=== PATIENT | female | born 2000 | race American Indian/Alaskan Native ===

== ENCOUNTER 2020-03-03 05:14 | Observation (INO) | payer MEDICAID, OTHER ==
[2020-03-03] MEDS ORDERED: ALBUTEROL 2.5 MG/3 ML NEBU IH ONE ×4 (05:30→09:29)
[2020-03-03] MEDS ORDERED: IPRATROPIUM 0.02% NEBU 2.5 ML IH ONE ×3 (05:30→05:32)
[2020-03-03] MEDS ORDERED: SODIUM CHLORIDE 0.9% 1000 ML 1,000 ML IV ONE (06:41)
[2020-03-03] MEDS ORDERED: MAGNESIUM SULFATE 2 GM/50 ML BAG IV ONE (06:42)
[2020-03-03] MEDS ORDERED: EPINEPHrine/PF 1 MG/1 ML INJ SUB-Q ONE ×3 (06:42→09:26)
--- NOTE | 2020-03-03 06:42 | Emergency Department Report ---
ED Asthma HPI - General Chief Complaint: Adult Asthma Stated Complaint: ASTHMA FLARE PUI?: No Time Seen by Provider: 03/03/20 06:34 Source: patient, RN notes reviewed Mode of arrival: Ambulatory Limitations: No Limitations - History of Present Illness Initial Comments: The patient was evaluated in the emergency department for symptoms described in the history of present illness. He/she was evaluated in the context of the [facility] COVID-19 pandemic, which necessitated consideration that the patient might be at risk for infection with the virus that causes COVID-19. Institutional protocols and algorithms that pertain to the evaluation of patients at risk for COVID-19 are in a state of rapid change based on information released by regulatory bodies including the CDC and federal and state organizations. These policies and algorithms were followed during the patient's care in the emergency department. Please note that these policies, procedures and recommendations changed on a rapid basis. During the entire history and physical examination, I am chaperoned/escorted by paramedics Agapiot Perry The patient is a 19-year-old female. She is not known to myself previously. She states that she is not . She has a history of asthma. She denies intubations. She believes that she has been admitted to the hospital at least once or twice in the past. She does not take maintenance medications. She states that she has not delivered or given within the past 6 weeks, she has not traveled, had surgery, she does not take oral contraceptives, and she denies DVT, pulmonary embolism risk factors. She presents to the ER with a complaint of chest tightness, cough, wheezing, shortness of breath, typical of prior asthma exacerbations. Denies headache, neck pain, abdominal pain, vomiting, diaphoresis, leg pain, leg swelling, and urinary symptoms. She states that she does not smoke anything. MD Complaint: "asthma attack", shortness of breath, wheezing -: Gradual, days(s) (1 to 2 days) Asthma History: childhood onset, history of frequent attac, history of prior ED visit Severity: moderate Context: other (Patient is not sure in what context her asthma has flared up) Associated Symptoms: dry cough, other (As per history of present illness) Treatments Prior to Arrival: inhaled bronchodilator (Patient using breathing treatments at home.) - Related Data Previous Rx's Medication Instructions Recorded Last Taken Type ALBUTEROL NEB's [Proventil 0.083% 2.5 mg IH TID PRN #25 neb 04/11/13 12/23/12 Rx NEBS] Albuterol Sulfate [Ventolin HFA] 2 puff IH Q4H PRN #1 hfa.aer.ad 04/11/13 12/23/12 Rx ALBUTEROL NEB's [Proventil 0.083% 2.5 mg IH Q4H PRN #25 neb 01/21/14 Unknown Rx NEBS] Azithromycin [Zithromax Z-NIKOS] 250 mg PO DAILY #6 tablet 01/21/14 Unknown Rx Promethazine /Codeine 5 ml PO Q6H PRN #100 ml 01/21/14 Unknown Rx [Phenergan/Codeine 6.25-10 mg/5 ml] predniSONE [Deltasone] 20 mg PO TID #15 tab 01/21/14 Unknown Rx Allergies Allergy/AdvReac Type Severity Reaction Status Date / Time No Known Allergies Allergy Verified 01/21/14 01:53 ED Review of Systems ROS: Stated complaint: ASTHMA FLARE Other details as noted in HPI Constitutional: denies: fever Eyes: denies: eye discharge ENT: congestion Respiratory: cough, shortness of breath, SOB with exertion, SOB at rest, wheezing Cardiovascular: denies: syncope Gastrointestinal: denies: abdominal pain Genitourinary: denies: dysuria Musculoskeletal: as per HPI Skin: as per HPI Neurological: as per HPI Psychiatric: as per HPI Hematological/Lymphatic: as per HPI ED Past Medical Hx - Past Medical History Previous Medical History?: Yes Hx Asthma: Yes - Surgical History Past Surgical History?: No - Social History Smoking Status: Never Smoker Substance Use Type: None - Medications Home Medications: Home Medications Medication Instructions Recorded Confirmed Last Taken Type ALBUTEROL NEB's [Proventil 0.083% 2.5 mg IH TID PRN #25 neb 04/11/13 01/21/14 12/23/12 Rx NEBS] Albuterol Sulfate [Ventolin HFA] 2 puff IH Q4H PRN #1 hfa.aer.ad 04/11/13 01/21/14 12/23/12 Rx ALBUTEROL NEB's [Proventil 0.083% 2.5 mg IH Q4H PRN #25 neb 01/21/14 Unknown Rx NEBS] Azithromycin [Zithromax Z-NIKOS] 250 mg PO DAILY #6 tablet 01/21/14 Unknown Rx Promethazine /Codeine 5 ml PO Q6H PRN #100 ml 01/21/14 Unknown Rx [Phenergan/Codeine 6.25-10 mg/5 ml] predniSONE [Deltasone] 20 mg PO TID #15 tab 01/21/14 Unknown Rx ED Physical Exam - General Limitations: No Limitations General appearance: alert, in no apparent distress - Head Head exam: Present: atraumatic, normocephalic - Eye Eye exam: Present: normal appearance, EOMI. Absent: nystagmus - ENT ENT exam: Present: normal exam, normal orophraynx, mucous membranes moist - Neck Neck exam: Present: normal inspection, full ROM. Absent: tenderness, meningi smus - Respiratory Respiratory exam: Present: respiratory distress, wheezes, rhonchi. Absent: rales, stridor - Cardiovascular Cardiovascular Exam: Present: normal rhythm, tachycardia, normal heart sounds. Absent: regular rate, bradycardia, irregular rhythm, systolic murmur, diastolic murmur, rubs, gallop - GI/Abdominal GI/Abdominal exam: Present: soft. Absent: distended, tenderness, guarding, rebound, rigid, hernia - Extremities Exam Extremities exam: Present: normal inspection, full ROM, other (2+ pulses noted in the bilateral upper and lower extremities. There is no palpable cord. negative Homans sign. Muscular compartments are soft. The pelvis is stable.). Absent: pedal edema, calf tenderness - Back Exam Back exam: Present: normal inspection, full ROM. Absent: tenderness, CVA tende rness (R), CVA tenderness (L), paraspinal tenderness, vertebral tenderness - Neurological Exam Neurological exam: Present: alert, other (No facial droop. Tongue midline. Extraocular movements intact bilaterally. Facial sensation intact to light touch in V1, V2, V3 distribution bilaterally. 5 and a 5 strength in 4 extremities. Sensation intact to light touch in 4 extremities.). Absent: motor sensory deficit - Psychiatric Psychiatric exam: Present: anxious - Skin Skin exam: Present: warm, dry, intact, normal color. Absent: rash ED Course Vital Signs 03/03/20 03/03/20 03/03/20 05:20 05:35 08:01 Temperature 98.8 F Pulse Rate 133 H 130 H Pulse Rate [ 99 H Bilateral] Respiratory 18 23 Rate Respiratory 24 Rate [Bilateral ] Blood Pressure 132/89 134/86 Blood Pressure [Left] O2 Sat by Pulse 99 100 Oximetry 03/03/20 03/03/20 03/03/20 08:06 08:08 08:11 Temperature Pulse Rate 130 H Pulse Rate [ 124 H Bilateral] Respiratory 30 H 30 H Rate Respiratory 28 H Rate [Bilateral ] Blood Pressure Blood Pressure 142/72 [Left] O2 Sat by Pulse 100 100 Oximetry 03/03/20 03/03/20 03/03/20 08:15 08:45 09:01 Temperature Pulse Rate 135 H 135 H 140 H Pulse Rate [ Bilateral] Respiratory 18 24 29 H Rate Respiratory Rate [Bilateral ] Blood Pressure 134/86 134/86 134/86 Blood Pressure [Left] O2 Sat by Pulse 100 100 100 Oximetry 03/03/20 03/03/20 03/03/20 09:15 09:30 09:31 Temperature Pulse Rate 127 H 129 H Pulse Rate [ 133 H Bilateral] Respiratory 25 H 22 Rate Respiratory 22 Rate [Bilateral ] Blood Pressure 134/86 134/86 Blood Pressure [Left] O2 Sat by Pulse 100 97 Oximetry 03/03/20 03/03/20 09:45 10:00 Temperature Pulse Rate 138 H 130 H Pulse Rate [ Bilateral] Respiratory 24 26 H Rate Respiratory Rate [Bilateral ] Blood Pressure 134/86 117/64 Blood Pressure [Left] O2 Sat by Pulse 95 99 Oximetry - Reevaluation(s) Reevaluation #1: 03/03/20 07:25 Differential diagnosis, including but not limited to: Asthma exacerbation, bronchitis, costochondritis Assessment and plan: 19-year-old female, who reports no pulmonary embolism or DVT risk factors, who is low risk by Wells criteria, with a known history of reactive airway disease, presenting with cough, wheezing, chest tightness, saturating at 94, 95% on room air, likely with asthma exacerbation/reactive airway disease exacerbation. X-ray of the chest was ordered prior to my personal evaluation, and shows no acute findings. Treat with albuterol, Atrovent, steroids, magnesium, subcutaneous epinephrine, obtain EKG, and reassess. Reevaluation #2: 03/03/20 07:42 Still wheezing. O2 sat 92%. May be secondary to VQ mismatch, secondary to nebulizer therapy. Tachycardia is likely secondary to epinephrine and albuterol administration. Additional therapy is ordered. EKG pending Reevaluation #3: 03/03/20 09:27 The patient is reevaluated multiple times. She was not able to fully p articipate in peak flow, reported peak flow was 140 cc. On multiple repeat evaluations, still wheezing, still tachypneic. She is not able to exert herself physically, not able to walk without "gasping for my life." In spite of aggressive medical treatment, patient still continues to remain symptomatic and wheeze. We will give additional albuterol, epinephrine, admit the patient to the medical service. I have discussed this plan of care with the patient, she is amenable to this plan of care. Hospital physician, Dr. Darrell Roger to admit Reevaluation #4: 03/03/20 10:24 Arterial blood gas consistent with uncompensated acute hypoxemic respiratory failure, likely secondary to acute asthma exacerbation Reevaluation #5: 03/03/20 10:35 Leukocytosis is likely a stress reaction/demargination. Do not suspect invasive bacterial illness at this time. Abnormal vital signs, well consistent with systemic inflammatory response syndrome, likely secondary to acute status asthmaticus/hypoxic respiratory failure Hypokalemia likely secondary to albuterol administration. ED Medical Decision Making - Lab Data Result diagrams: 03/03/20 09:38 03/03/20 09:38 Vital Signs 03/03/20 03/03/20 05:20 05:35 Temperature 98.8 F Pulse Rate 133 H Pulse Rate [ 99 H Bilateral] Respiratory 18 Rate Respiratory 24 Rate [Bilateral ] Blood Pressure 132/89 O2 Sat by Pulse 99 Oximetry Vital Signs 03/03/20 03/03/20 03/03/20 05:20 05:35 08:01 Temperature 98.8 F Pulse Rate 133 H 130 H Pulse Rate [ 99 H Bilateral] Respiratory 18 23 Rate Respiratory 24 Rate [Bilateral ] Blood Pressure 132/89 134/86 Blood Pressure [Left] O2 Sat by Pulse 99 100 Oximetry 03/03/20 03/03/20 03/03/20 08:06 08:08 08:11 Temperature Pulse Rate 130 H Pulse Rate [ 124 H Bilateral] Respiratory 30 H 30 H Rate Respiratory 28 H Rate [Bilateral ] Blood Pressure Blood Pressure 142/72 [Left] O2 Sat by Pulse 100 100 Oximetry 03/03/20 03/03/20 03/03/20 08:15 08:45 09:01 Temperature Pulse Rate 135 H 135 H 140 H Pulse Rate [ Bilateral] Respiratory 18 24 29 H Rate Respiratory Rate [Bilateral ] Blood Pressure 134/86 134/86 134/86 Blood Pressure [Left] O2 Sat by Pulse 100 100 100 Oximetry 03/03/20 03/03/20 03/03/20 09:15 09:30 09:31 Temperature Pulse Rate 127 H 129 H Pulse Rate [ 133 H Bilateral] Respiratory 25 H 22 Rate Respiratory 22 Rate [Bilateral ] Blood Pressure 134/86 134/86 Blood Pressure [Left] O2 Sat by Pulse 100 97 Oximetry 03/03/20 03/03/20 09:45 10:00 Temperature Pulse Rate 138 H 130 H Pulse Rate [ Bilateral] Respiratory 24 26 H Rate Respiratory Rate [Bilateral ] Blood Pressure 134/86 117/64 Blood Pressure [Left] O2 Sat by Pulse 95 99 Oximetry - EKG Data -: EKG Interpreted by Vt Rate: tachycardia - EKG Data 03/03/20 07:47 Sinus rhythm, tachycardia, 140 bpm, normal axis, QTC 532 ms, high left vent ricular voltage, minimal motion artifact, this EKG is not a STEMI. - Radiology Data Radiology results: report reviewed, image reviewed X-ray of the chest is negative for acute findings. Critical Care Time: Yes Critical care time in (mins) excluding proc time.: 35 Critical care attestation.: If time is entered above; I have spent that time in minutes in the direct care of this critically ill patient, excluding procedure time. ED Disposition Clinical Impression: Acute hypoxemic respiratory failure, Hypokalemia Status asthmaticus Qualifiers: Asthma severity: severe Asthma persistence: persistent Qualified Code(s): J45.52 - Severe persistent asthma with status asthmaticus Disposition: OP ADMIT IP TO THIS HOSP Is pt being admited?: Yes Does the pt Need Aspirin: No Condition: Serious
[2020-03-03] MEDS: methylPREDNISolone Sod Succinate 125 MG/2 ML INJ IV ONE ×2 (06:48→23:01)
--- NOTE | 2020-03-03 07:00 | XRay Report ---
CHEST 1 VIEW INDICATION: cough and wheezing. COMPARISON: None. FINDINGS: Support devices: None. Heart: Normal. Lungs/Pleura: No acute pulmonary or pleural findings. IMPRESSION: 1. No acute findings. Signer Name: Lei Corrales MD Signed: 03/03/2020 6:55 AM Workstation Name: [id number]
[2020-03-03 10:06] LABS: Hematocrit 40.1 % (30.3-42.9); Hemoglobin 13.1 gm/dl (10.1-14.3); Mean Corpuscular HGB Conc 33 % (30-34); Mean Corpuscular Volume 85 fl (79-97); Platelet Count 313 K/mm3 (140-440); Red Blood Count 4.73 M/mm3 (3.65-5.03)
[2020-03-03 10:17] LABS: INR 1.2 (0.87-1.13)
[2020-03-03 10:19] LABS: ABG Base Excess -3.4 mmol/L (-2.0-3.0); ABG HCO3 20.7 mmol/L (20.0-26.0); ABG Methemoglobin 0.5 % (0.0-1.5); ABG Oxygen Saturation 91.3 % (95.0-99.0); ABG PCO2 34.3 mm Hg; ABG PH 7.399 pH Units (7.350-7.450); ABG PO2 59.4 mm Hg (80.0-90.0)
[2020-03-03 10:23] LABS: Blood Urea Nitrogen 3 mg/dL (7-17); Calcium 8.6 mg/dL (8.4-10.2); Hemolysis Index 1
--- NOTE | 2020-03-03 10:24 | History and Physical Report ---
History of Present Illness Date of examination: 03/03/20 Date of admission: 03/03/20 09:29 Chief complaint: Worsening shortness of breath, worsening wheeze for the last 2 days History of present illness: 19-year-old female patient with significant past medical history of bronchial asthma asymptomatic for more than 1 to 2 years, uses albuterol nebulizers at home Presented to the emergency room with history of upper respiratory symptoms, worsening shortness of breath and worsening wheezing for the last 2 3 days. Patient has history of asthma since childhood, and was not admitted to the hospital for many years, not on home oxygen. On initial evaluation patient was noted to be in acute exacerbation of bronchial asthma, severe hypokalemia, leukocytosis and sinus tachycardia X-ray chest negative for acute abnormalities Patient denies nausea vomiting or abdominal pain Denies chest pain, no fever Past History Past Medical History: other (Bronchial asthma) Past Surgical History: denies: No surgical history Social history: denies: smoking, alcohol abuse, prescription drug abuse Family history: hypertension Medications and Allergies Allergies Allergy/AdvReac Type Severity Reaction Status Date / Time No Known Allergies Allergy Verified 01/21/14 01:53 Home Medications Medication Instructions Recorded Confirmed Last Taken Type ALBUTEROL NEB's [Proventil 0.083% 2.5 mg IH TID PRN #25 neb 04/11/13 01/21/14 12/23/12 Rx NEBS] Albuterol Sulfate [Ventolin HFA] 2 puff IH Q4H PRN #1 hfa.aer.ad 04/11/13 01/21/14 12/23/12 Rx ALBUTEROL NEB's [Proventil 0.083% 2.5 mg IH Q4H PRN #25 neb 01/21/14 Unknown Rx NEBS] Azithromycin [Zithromax Z-NIKOS] 250 mg PO DAILY #6 tablet 01/21/14 Unknown Rx Promethazine /Codeine 5 ml PO Q6H PRN #100 ml 01/21/14 Unknown Rx [Phenergan/Codeine 6.25-10 mg/5 ml] predniSONE [Deltasone] 20 mg PO TID #15 tab 01/21/14 Unknown Rx Review of Systems Constitutional: no weight loss, no weight gain, no fever, no chills Ears, nose, mouth and throat: no nasal congestion, no nasal discharge Cardiovascular: no chest pain, no orthopnea, no palpitations Respiratory: cough, shortness of breath, wheezing Gastrointestinal: no abdominal pain, no nausea, no vomiting Genitourinary Female: no pelvic pain, no flank pain Musculoskeletal: no myalgias, no arthritis Integumentary: no rash, no lesions Neurological: weakness, parathesias Psychiatric: anxiety, no depression Endocrine: no cold intolerance, no heat intolerance, no polydipsia, no polyuria Hematologic/Lymphatic: no easy bruising, no easy bleeding Allergic/Immunologic: no urticaria, no allergic rhinitis Exam - Constitutional Vitals: Temp Pulse Resp BP Pulse Ox 98.8 F 130 H 26 H 117/64 99 03/03/20 05:20 03/03/20 10:00 03/03/20 10:00 03/03/20 10:00 03/03/20 10:00 General appearance: Present: mild distress, well-nourished - EENT Eyes: Present: PERRL, EOM intact - Neck Neck: Present: supple, normal ROM - Respiratory Respiratory effort: normal Respiratory: bilateral: diminished, rhonchi, wheezing, negative: rales - Cardiovascular Rhythm: regular Heart Sounds: Present: S1 & S2 (Sinus tachycardia) - Extremities Extremities: no ischemia, No edema - Abdominal General gastrointestinal: Present: soft, non-tender, non-distended, normal bowel sounds - Integumentary Integumentary: Present: clear, warm - Musculoskeletal Musculoskeletal: strength equal bilaterally - Psychiatric Psychiatric: appropriate mood/affect, cooperative - Neurologic Neurologic: moves all extremities Results - Labs CBC & Chem 7: 03/03/20 09:38 03/03/20 14:09 Labs: Abnormal lab results 03/03/20 03/03/20 03/03/20 Range/Units 09:35 09:38 09:38 WBC 14.7 H (4.5-11.0) K/mm3 PT 15.4 H (12.2-14.9) Sec. INR 1.20 H (0.87-1.13) ABG pO2 59.4 L (80.0-90.0) mm Hg ABG O2 Saturation 91.3 L (95.0-99.0) % ABG Base Excess -3.4 L (-2.0-3.0) mmol/L Oxyhemoglobin 89.8 L (95.0-99.0) % Assessment and Plan --Severe hypokalemia; Replenish with IV and oral KCl Check magnesium levels Closely monitor electrolytes --Acute exacerbation of bronchial asthma; Oxygen titrate O2 sats more than 90% Duo nebs, albuterol as needed IV Levaquin, inhalation steroids Solu-Medrol IV tapering doses Pulmonary consult if needed Home oxygen evaluation at discharge --Sinus tachycardia; probably secondary to albuterol Closely monitor, low-dose Xanax Drug screen --Leukocytosis; Probably due to pneumonitis Partly due to steroids Closely monitor, on antibiotics --Hyperglycemia; probably due to steroid use Accu-Chek sliding scale coverage Check A1c --DVT prophylaxis; Lovenox Closely monitor the patient and adjust management as needed
[2020-03-03] MEDS ORDERED: ALBUTEROL 2.5 MG/3 ML NEBU IH PRN (10:25)
[2020-03-03 10:26] LABS: BUN/Creatinine Ratio 6
[2020-03-03] MEDS ORDERED: POTASSIUM CHLORIDE ER 20 MEQ TAB PO STA (10:34)
[2020-03-03] MEDS: POTASSIUM CHLORIDE 10 MEQ 10 MEQ/100 ML BAG IV SCH ×4 (12:30→15:20)
[2020-03-03] MEDS: IPRATROPIUM/ALBUTEROL SULFATE 3 ML AMPUL.NEB IH SCH ×3 (12:35→21:08)
[2020-03-03] MEDS ORDERED: IPRATROPIUM/ALBUTEROL SULFATE 3 ML AMPUL.NEB IH ONE ×3 (12:35→21:06)
[2020-03-03] MEDS ORDERED: POTASSIUM CHLORIDE 10 MEQ 10 MEQ/100 ML BAG IV ONE (13:03)
[2020-03-03] MEDS ORDERED: POTASSIUM CHLORIDE ER 20 MEQ TAB PO ONE ×3 (13:03→20:14)
[2020-03-03] MEDS ORDERED: SODIUM CHLORIDE 0.9% 1000 ML 1,000 ML ONE (13:12)
[2020-03-03] MEDS ORDERED: POTASSIUM CHLORIDE 10 MEQ 30 MEQ/300 ML BAG IV ONE (14:14)
[2020-03-03] MEDS: methylPREDNISolone Sod Succinate 125 MG/2 ML INJ IV SCH ×2 (14:27→23:01)
[2020-03-03] MEDS: INSULIN LISPRO 100 UNIT/ML VIAL 3 mL SUB-Q SCH ×3 (14:38→22:25)
[2020-03-03] MEDS ORDERED: ONDANSETRON 4 MG/2 ML INJ IV PRN (17:20)
[2020-03-03] MEDS ORDERED: methylPREDNISolone Sod Succinate 40 MG/1 ML INJ ONE ×2 (17:50→22:28)
[2020-03-03] MEDS ORDERED: ACETAMINOPHEN 325 MG TAB ONE (17:50)
[2020-03-03] MEDS ORDERED: ALPRAZolam 0.5 MG TAB ONE (17:51)
[2020-03-03] MEDS: ACETAMINOPHEN 325 MG TAB PO PRN (18:36)
[2020-03-03] MEDS: ALPRAZolam 0.5 MG TAB PO PRN (18:36)
[2020-03-03] MEDS ORDERED: FUROSEMIDE 20 MG/2 ML INJ IV ONE (18:38)
[2020-03-03 19:22] LABS: Amphetamine Screen,Urine PRESUMPTIVE NEGATIVE; Benzodiazepines Screen,Urine PRESUMPTIVE NEGATIVE; Cannabinoid Screen,Urine PRESUMPTIVE POSITIVE; Cocaine Screen,Urine PRESUMPTIVE NEGATIVE; Methadone Screen,Urine PRESUMPTIVE NEGATIVE; Opiate Screen,Urine PRESUMPTIVE NEGATIVE
[2020-03-03] MEDS ORDERED: BUDESONIDE 0.5 MG, ARFORMOTEROL NEBU 15 MCG IH SCH (20:00)
[2020-03-03] MEDS ORDERED: FUROSEMIDE 20 MG/2 ML INJ ONE (20:15)
[2020-03-03] MEDS ORDERED: BUDESONIDE 0.5 MG/2 ML NEBU IH ONE (21:05)
[2020-03-03] MEDS ORDERED: ARFORMOTEROL 15 MCG/2 ML NEBU IH ONE (21:06)
[2020-03-03] MEDS: ARFORMOTEROL 15 MCG/2 ML NEBU IH SCH (21:08)
[2020-03-03] MEDS: BUDESONIDE 0.5 MG/2 ML NEBU IH SCH (21:08)
[2020-03-03] MEDS: ENOXAPARIN 40 MG/0.4 ML INJ SUB-Q SCH (23:00)
[2020-03-04] MEDS: IPRATROPIUM/ALBUTEROL SULFATE 3 ML AMPUL.NEB IH SCH ×2 (00:18→04:31)
[2020-03-04] MEDS: ACETAMINOPHEN 325 MG TAB PO PRN ×2 (00:47→05:53)
[2020-03-04] MEDS: ALPRAZolam 0.5 MG TAB PO PRN (00:47)
[2020-03-04] MEDS ORDERED: LEVALBUTEROL 1.25 MG/3 ML NEB IH ONE (04:23)
[2020-03-04] MEDS: guaiFENesin DM 200/20 MG ORAL LIQD 10 ML PO PRN ×2 (04:25→09:32)
[2020-03-04] MEDS: PHENOL 1.4% 177 ML BOTTLE MM PRN ×2 (04:26→09:32)
[2020-03-04] MEDS: methylPREDNISolone Sod Succinate 125 MG/2 ML INJ IV SCH ×3 (05:53→18:19)
[2020-03-04 06:13] LABS: Hematocrit 39.2 % (30.3-42.9); Hemoglobin 12.8 gm/dl (10.1-14.3); Mean Corpuscular HGB Conc 33 % (30-34); Mean Corpuscular Volume 87 fl (79-97); Platelet Count 277 K/mm3 (140-440); Red Blood Count 4.51 M/mm3 (3.65-5.03); Red Cell Distribution Width 15.1 % (13.2-15.2)
[2020-03-04 06:27] LABS: Blood Urea Nitrogen 4 mg/dL (7-17); Calcium 9.5 mg/dL (8.4-10.2); Hemolysis Index 10
[2020-03-04 06:36] LABS: BUN/Creatinine Ratio 8
[2020-03-04] MEDS ORDERED: LEVALBUTEROL 0.63 MG/3 ML NEBU IH ONE (07:04)
[2020-03-04 07:26] LABS: Anisocytosis 1+; Basophils % (Manual) 0 % (0.0-1.8); Eosinophils % (Manual) 0 % (0.0-4.3); Total Cells Counted 100
[2020-03-04 07:27] LABS: Platelet Estimate Consistent w Auto
[2020-03-04] MEDS: BUDESONIDE 0.5 MG/2 ML NEBU IH SCH ×2 (07:59→19:29)
[2020-03-04] MEDS: ARFORMOTEROL 15 MCG/2 ML NEBU IH SCH ×2 (08:00→19:29)
[2020-03-04] MEDS: INSULIN LISPRO 100 UNIT/ML VIAL 3 mL SUB-Q SCH ×4 (08:00→21:45)
[2020-03-04] MEDS ORDERED: SODIUM CHLORIDE 0.9% 500 ML 500 ML ONE (09:01)
--- NOTE | 2020-03-04 09:20 | Progress Note ---
Assessment and Plan Assessment and plan: --Severe hypokalemia; resolved Patient received oral and IV KCl yesterday Monitor electrolytes --Acute exacerbation of bronchial asthma; Oxygen titrate O2 sats more than 90% Duo nebs, albuterol as needed IV Levaquin, inhalation steroids Solu-Medrol IV tapering doses Symptoms significantly improved Start tapering steroids Home oxygen evaluation at discharge --Sinus tachycardia; probably secondary to albuterol Closely monitor, low-dose Xanax Drug screen --Leukocytosis; Probably due to pneumonitis Partly due to steroids Closely monitor, on antibiotics --Hyperglycemia; probably due to steroid use Accu-Chek sliding scale coverage Check A1c --Recreational drug marijuana use; advised to quit. --DVT prophylaxis; Lovenox Closely monitor the patient and adjust management as needed Patient is stable to be transferred out of [facility] to medical floor Ambulate as tolerated Home oxygen evaluation Possible discharge home tomorrow End of care reviewed with the patient and her nurse History Interval history: I have seen and examined the patient at the bedside in [facility] this morning Patient's chart current medications tests reviewed Patient feels slightly better wheeze and shortness of breath significantly improved At the time of my evaluation patient is not on nasal cannula oxygen Denies chest pain or shortness of breath Vital signs reviewed On nasal cannula oxygen Hospitalist Physical - Constitutional Vitals: Temp Pulse Resp BP Pulse Ox 98.4 F 119 H 25 H 125/75 93 03/04/20 03:43 03/04/20 06:00 03/04/20 06:00 03/04/20 06:00 03/04/20 06:00 General appearance: Present: mild distress, well-nourished - EENT Eyes: Present: PERRL, EOM intact - Neck Neck: Present: supple, normal ROM - Respiratory Respiratory effort: normal Respiratory: bilateral: diminished - Cardiovascular Rhythm: regular Heart Sounds: Present: S1 & S2 - Extremities Extremities: no ischemia, No edema - Abdominal General gastrointestinal: soft, non-tender, non-distended, normal bowel sounds - Integumentary Integumentary: Present: clear, warm - Psychiatric Psychiatric: appropriate mood/affect, cooperative - Neurologic Neurologic: moves all extremities Results - Labs CBC & Chem 7: 03/04/20 04:09 03/04/20 04:09 Labs: Laboratory Last Values WBC 17.7 K/mm3 (4.5-11.0) H 03/04/20 04:09 RBC 4.51 M/mm3 (3.65-5.03) 03/04/20 04:09 Hgb 12.8 gm/dl (10.1-14.3) 03/04/20 04:09 Hct 39.2 % (30.3-42.9) 03/04/20 04:09 MCV 87 fl (79-97) 03/04/20 04:09 MCH 28 pg (28-32) 03/04/20 04:09 MCHC 33 % (30-34) 03/04/20 04:09 RDW 15.1 % (13.2-15.2) 03/04/20 04:09 Plt Count 277 K/mm3 (140-440) 03/04/20 04:09 Add Manual Diff Complete 03/04/20 04:09 Total Counted 100 03/04/20 04:09 Seg Neutrophils % Director Of Content And Programming 03/04/20 04:09 Seg Neuts % (Manual) 94.0 % (40.0-70.0) H 03/04/20 04:09 Band Neutrophils % 0 % 03/04/20 04:09 Lymphocytes % (Manual) 3.0 % (13.4-35.0) L 03/04/20 04:09 Reactive Lymphs % (Man) 0 % 03/04/20 04:09 Monocytes % (Manual) 3.0 % (0.0-7.3) 03/04/20 04:09 Eosinophils % (Manual) 0 % (0.0-4.3) 03/04/20 04:09 Basophils % (Manual) 0 % (0.0-1.8) 03/04/20 04:09 Metamyelocytes % 0 % 03/04/20 04:09 Myelocytes % 0 % 03/04/20 04:09 Promyelocytes % 0 % 03/04/20 04:09 Blast Cells % 0 % 03/04/20 04:09 Nucleated RBC % Not Reportable 03/04/20 04:09 Seg Neutrophils # Man 16.6 K/mm3 (1.8-7.7) H 03/04/20 04:09 Band Neutrophils # 0.0 K/mm3 03/04/20 04:09 Lymphocytes # (Manual) 0.5 K/mm3 (1.2-5.4) L 03/04/20 04:09 Abs React Lymphs (Man) 0.0 K/mm3 03/04/20 04:09 Monocytes # (Manual) 0.5 K/mm3 (0.0-0.8) 03/04/20 04:09 Eosinophils # (Manual) 0.0 K/mm3 (0.0-0.4) 03/04/20 04:09 Basophils # (Manual) 0.0 K/mm3 (0.0-0.1) 03/04/20 04:09 Metamyelocytes # 0.0 K/mm3 03/04/20 04:09 Myelocytes # 0.0 K/mm3 03/04/20 04:09 Promyelocytes # 0.0 K/mm3 03/04/20 04:09 Blast Cells # 0.0 K/mm3 03/04/20 04:09 WBC Morphology Not Reportable 03/04/20 04:09 Hypersegmented Neuts Not Reportable 03/04/20 04:09 Hyposegmented Neuts Not Reportable 03/04/20 04:09 Hypogranular Neuts Not Reportable 03/04/20 04:09 Smudge Cells Not Reportable 03/04/20 04:09 Toxic Granulation Not Reportable 03/04/20 04:09 Toxic Vacuolation Not Reportable 03/04/20 04:09 Dohle Bodies Not Reportable 03/04/20 04:09 Pelger-Huet Anomaly Not Reportable 03/04/20 04:09 Va Rods Not Reportable 03/04/20 04:09 Platelet Estimate Consistent w auto 03/04/20 04:09 Clumped Platelets Not Reportable 03/04/20 04:09 Plt Clumps, EDTA Not Reportable 03/04/20 04:09 Large Platelets Not Reportable 03/04/20 04:09 Giant Platelets Not Reportable 03/04/20 04:09 Platelet Satelliting Not Reportable 03/04/20 04:09 Plt Morphology Comment Not Reportable 03/04/20 04:09 RBC Morphology Not Reportable 03/04/20 04:09 Dimorphic RBCs Not Reportable 03/04/20 04:09 Polychromasia Not Reportable 03/04/20 04:09 Hypochromasia Not Reportable 03/04/20 04:09 Poikilocytosis Not Reportable 03/04/20 04:09 Anisocytosis 1+ 03/04/20 04:09 Microcytosis Not Reportable 03/04/20 04:09 Macrocytosis Not Reportable 03/04/20 04:09 Spherocytes Not Reportable 03/04/20 04:09 Pappenheimer Bodies Not Reportable 03/04/20 04:09 Sickle Cells Not Reportable 03/04/20 04:09 Target Cells Not Reportable 03/04/20 04:09 Tear Drop Cells Not Reportable 03/04/20 04:09 Ovalocytes Not Reportable 03/04/20 04:09 Helmet Cells Not Reportable 03/04/20 04:09 Price-Parkin Bodies Not Reportable 03/04/20 04:09 [place] Rings Not Reportable 03/04/20 04:09 [place] Cells Not Reportable 03/04/20 04:09 Bite Cells Not Reportable 03/04/20 04:09 Crenated Cell Not Reportable 03/04/20 04:09 Elliptocytes Not Reportable 03/04/20 04:09 Acanthocytes (Spur) Not Reportable 03/04/20 04:09 Rouleaux Not Reportable 03/04/20 04:09 Hemoglobin C Crystals Not Reportable 03/04/20 04:09 Schistocytes Not Reportable 03/04/20 04:09 Malaria parasites Not Reportable 03/04/20 04:09 Juvenal Bodies Not Reportable 03/04/20 04:09 Hem Pathologist Commnt No 03/04/20 04:09 PT 15.4 Sec. (12.2-14.9) H 03/03/20 09:38 INR 1.20 (0.87-1.13) H 03/03/20 09:38 ABG pH 7.399 pH Units (7.350-7.450) 03/03/20 09:35 ABG pCO2 34.3 mm Hg 03/03/20 09:35 ABG pO2 59.4 mm Hg (80.0-90.0) L 03/03/20 09:35 ABG HCO3 20.7 mmol/L (20.0-26.0) 03/03/20 09:35 ABG O2 Saturation 91.3 % (95.0-99.0) L 03/03/20 09:35 ABG O2 Content 16.2 (0.0-44) 03/03/20 09:35 ABG Base Excess -3.4 mmol/L (-2.0-3.0) L 03/03/20 09:35 ABG Hemoglobin 12.9 gm/dl (12.0-16.0) 03/03/20 09:35 ABG Carboxyhemoglobin 1.1 % (0.0-5.0) 03/03/20 09:35 ABG Methemoglobin 0.5 % (0.0-1.5) 03/03/20 09:35 Oxyhemoglobin 89.8 % (95.0-99.0) L 03/03/20 09:35 FiO2 21 % 03/03/20 09:35 Sodium 139 mmol/L (137-145) 03/04/20 04:09 Potassium 4.6 mmol/L (3.6-5.0) D 03/04/20 04:09 Chloride 104.2 mmol/L (98-107) 03/04/20 04:09 Carbon Dioxide 20 mmol/L (22-30) L 03/04/20 04:09 Anion Gap 19 mmol/L 03/04/20 04:09 BUN 4 mg/dL (7-17) L 03/04/20 04:09 Creatinine 0.5 mg/dL (0.6-1.2) L 03/04/20 04:09 Estimated GFR > 60 ml/min 03/04/20 04:09 BUN/Creatinine Ratio 8 % 03/04/20 04:09 Glucose 121 mg/dL (65-100) H 03/04/20 04:09 POC Glucose 143 (70-105) H 03/04/20 00:02 Calcium 9.5 mg/dL (8.4-10.2) 03/04/20 04:09 Magnesium 2.30 mg/dL (1.7-2.3) 03/03/20 14:01 Total Creatine Kinase 77 units/L (30-135) 03/03/20 09:38 HCG, Quant < 2 mIU/mL (0-4) 03/03/20 09:38 Urine Opiates Screen Presumptive negative 03/03/20 18:45 Urine Methadone Screen Presumptive negative 03/03/20 18:45 Ur Barbiturates Screen Presumptive negative 03/03/20 18:45 Ur Phencyclidine Scrn Presumptive negative 03/03/20 18:45 Ur Amphetamines Screen Presumptive negative 03/03/20 18:45 U Benzodiazepines Scrn Presumptive negative 03/03/20 18:45 Urine Cocaine Screen Presumptive negative 03/03/20 18:45 U Marijuana (THC) Screen Presumptive positive 03/03/20 18:45 Drugs of Abuse Note Disclamer 03/03/20 18:45 Li/IV: IV Catheter Type [Left Wrist] INT / Saline Lock IV Catheter Type [Right Distal INT / Saline Lock Port Antecubital] Active Medications - Current Medications Current Medications: Generic Name Dose Route Start Last Admin Trade Name Freq PRN Reason Stop Dose Admin Acetaminophen 650 mg 03/03/20 10:27 03/04/20 05:53 Tylenol PO 650 mg Q4H PRN Administration Pain, Mild (1-3) Albuterol 2.5 mg 03/03/20 10:25 Proventil IH Q4HRT PRN Shortness Of Breath Alprazolam 0.5 mg 03/03/20 13:12 03/04/20 00:47 Xanax PO 0.5 mg Q8H PRN Administration Anxiety Arformoterol Tartrate 15 mcg 03/03/20 20:00 03/04/20 08:00 Brovana Nebu IH 15 mcg Q12HRT ELIDA Administration Budesonide 0.5 mg 03/03/20 20:00 03/04/20 07:59 Pulmicort IH 0.5 mg Q12HRT ELIDA Administration Enoxaparin Sodium 40 mg 03/03/20 22:00 03/03/20 23:00 Enoxaparin SUB-Q Not Given QDAY@2200 [facility] Protocol Guaifenesin 10 ml 03/04/20 02:14 03/04/20 04:25 Guaifenesin Dm Syrup PO 10 ml Q4H PRN Administration Cough Levofloxacin/Dextrose 750 mg in 150 mls @ 100 mls/hr 03/03/20 18:00 03/03/20 20:19 Levaquin 750mg/150ml IV 100 mls/hr Q24HR ELIDA Administration Protocol Insulin Human Lispro 0 unit 03/03/20 11:30 03/03/20 22:25 Humalog SUB-Q Not Given ACHS [facility] Protocol Levalbuterol HCl 0.63 mg 03/04/20 14:00 Xopenex IH Q6HRT [facility] Methylprednisolone Sodium Succinate 60 mg 03/03/20 14:00 03/04/20 05:53 Solu-Medrol IV 60 mg Q8HR ELIDA Administration Ondansetron HCl 4 mg 03/03/20 17:20 Zofran IV Q4H PRN Nausea And Vomiting Phenol 1 spray 03/04/20 02:12 03/04/20 04:26 Chloraseptic MM 1 spray PRN PRN Administration Sore Throat
[2020-03-04] MEDS: LEVALBUTEROL 0.63 MG/3 ML NEBU IH SCH ×2 (15:23→19:29)
[2020-03-04] MEDS: ENOXAPARIN 40 MG/0.4 ML INJ SUB-Q SCH (21:41)
[2020-03-05] MEDS: LEVALBUTEROL 0.63 MG/3 ML NEBU IH SCH ×3 (02:09→14:03)
[2020-03-05] MEDS: methylPREDNISolone Sod Succinate 125 MG/2 ML INJ IV SCH (05:54)
[2020-03-05] MEDS: BUDESONIDE 0.5 MG/2 ML NEBU IH SCH (07:48)
[2020-03-05] MEDS: ARFORMOTEROL 15 MCG/2 ML NEBU IH SCH (07:48)
[2020-03-05] MEDS: INSULIN LISPRO 100 UNIT/ML VIAL 3 mL SUB-Q SCH ×2 (09:22→13:15)
[2020-03-05] MEDS ORDERED: levoFLOXacin 750 MG TAB PO SCH (10:00)
[2020-03-05 12:33] VITALS: BP 126/87
--- NOTE | 2020-03-05 13:31 | Discharge Summary ---
Providers - Providers Date of Admission: 03/03/20 09:29 Date of discharge: 03/05/20 Attending physician: SARTHAK GREY [facility] Reason for admission: Worsening shortness of breath and wheeze for the last 2 days Condition: Stable Pertinent studies: Chest x-ray, no acute abnormality noted Hospital course: 19-year-old female patient with significant past medical history of bronchial asthma asymptomatic for more than 1 to 2 years, uses albuterol nebulizers at home was admitted through the emergency room with history of upper respiratory symptoms, worsening shortness of breath and worsening wheezing for the last 2 -3 days. Initial evaluation is consistent with acute exacerbation of bronchial asthma and severe hypokalemia Patient was in acute distress admitted managed with oxygen titrated O2 sats to more than 90%, nebulizers, high-dose IV steroids she gradually tapered, IV antibiotics Inhalation steroids and supportive care Patient was also very anxious with the tachycardia received low-dose of Xanax with significant improvement Patient's potassium was replenished with oral KCl, potassium levels improved Patient today patient is comfortable significant improvement of symptoms, almost back to baseline Today she is alert awake oriented , shortness of breath completely resolved, very minimal wheeze on auscultation Home oxygen evaluation was done patient's resting and ambulatory room air O2 sats are more than 94% No indication for home oxygen, Patient is hemodynamically and clinically stable at discharge Prescriptions for albuterol inhaler as well as nebulizers, Z-Nikos, steroid pack, Advair disc was given to the patient Advised to follow with primary care physician in 3 to 4 days, advised to go to the nearest emergency room should she have worsening symptoms Patient verbalized understanding, stable at discharge Discharge diagnosis; --Acute exacerbation of bronchial asthma; Symptoms significantly improved back to baseline --History of bronchial asthma; continue Albuterol, tapering dose of steroids, inhalation steroids --Severe hypokalemia; resolved --Sinus tachycardia; medication induced resolved --Leukocytosis; improved probably due to steroid use --Hyperglycemia; improved probably due to steroid use --Recreational drug marijuana use; counseling done advised to quit Verbalized understanding Home oxygen evaluation; resting and ambulatory room air O2 sats more than 94% No indication for home oxygen Patient is hemodynamically and clinically stable at discharge Disposition: DC-01 TO HOME OR SELFCARE Time spent for discharge: 32 minutes Core Measure Documentation - Palliative Care Palliative Care/ Comfort Measures: Not Applicable - Core Measures Any of the following diagnoses?: none Exam - Constitutional Vitals: Temp Pulse Resp BP Pulse Ox 98.5 F 79 18 126/87 94 03/05/20 12:00 03/05/20 12:00 03/05/20 12:00 03/05/20 12:00 03/05/20 12:00 General appearance: Present: no acute distress, well-nourished - EENT Eyes: Present: PERRL, EOM intact - Neck Neck: Present: supple, normal ROM - Respiratory Respiratory effort: normal Respiratory: bilateral: diminished, negative: rales, rhonchi, wheezing - Cardiovascular Rhythm: regular Heart Sounds: Present: S1 & S2 - Extremities Extremities: no ischemia, No edema - Abdominal General gastrointestinal: Present: soft, non-tender, non-distended, normal bowel sounds - Integumentary Integumentary: Present: clear, warm - Musculoskeletal Musculoskeletal: strength equal bilaterally - Psychiatric Psychiatric: appropriate mood/affect, cooperative - Neurologic Neurologic: moves all extremities Plan Activity: no restrictions Diet: regular Additional Instructions: Patient resting and ambulatory room air O2 sats are more than 94%. No indication for home oxygen. If you have worsening symptoms contact MD or go to emergency room Follow up with: PAIGE BERNARD MD [Primary Care Provider] - 3-5 Days Prescriptions: Fluticasone/Salmeterol [Advair Diskus 250-50 mcg] 1 puff IH BID #1 disk.w.dev Prednisone [predniSONE 10 mg (6-Day Pack, 21 Tabs)] 10 mg PO .TAPER #1 tab.ds.pk Albuterol Mdi (or & Nicu Only) [ProAir HFA Inhaler] 2 puff IH QID PRN #8.5 gram PRN Reason: Shortness Of Breath ALBUTEROL NEB's [Proventil 0.083% NEBS] 2.5 mg IH TID PRN #25 neb PRN Reason: Wheezing Azithromycin [Zithromax Z-NIKOS] 0 mg PO DAILY #1 pack
== END 2020-03-05 17:20 | disposition home or self-care (01) ==
LOC: ED 05:14 → IMCU 09:29 → 3A 03-04 16:19
PROVIDERS: ADMIT Internal Medicine; ATTEND Internal Medicine
DX: J96.01 Acute respiratory failure with hypoxia (principal); J45.901 Unspecified asthma with (acute) exacerbation; R00.0 Tachycardia, unspecified; D72.829 Elevated white blood cell count, unspecified; E87.6 Hypokalemia; R73.9 Hyperglycemia, unspecified; Z79.899 Other long term (current) drug therapy
CPT/HCPCS: 36415; 36600; 71045; 80048; 80307; 82550; 82803; 82962; 83735; 84132; 84702; 85007; 85025; 85027; 85610; 93005; 94640; 94644; 94760; 96365; 96366; 96367; 96368; 96372; 96375; 96376; 99291; G0378; J0171; J1650; J1940; J1956; J2920; J2930; J3475; J3480; J7030; J7040

== ENCOUNTER 2021-04-16 00:01 | Emergency (ER) | payer OTHER ==
[2021-04-16] MEDS ORDERED: IPRATROPIUM/ALBUTEROL SULFATE 3 ML AMPUL.NEB IH ONE (01:36)
[2021-04-16] MEDS ORDERED: predniSONE 20 MG TAB PO ONE (01:36)
[2021-04-16 02:46] VITALS: BP 123/77
--- NOTE | 2021-04-16 02:47 | Emergency Department Report ---
ED Shortness of Breath HPI - General Chief Complaint: Adult Asthma Stated Complaint: ASTHMA Source: patient Mode of arrival: Ambulatory Limitations: No Limitations - History of Present Illness Initial Comments: Patient is a nulliparous 20-year-old -[place] female with a history of asthma who presents to the ED with complaint of acute onset persistent nasal and sinus congestion, persistent shortness of breath, wheezing, persistent dry cough for the last 2 days. Patient states that she ran out of all her medications including albuterol inhaler. Patient states that she usually experiences similar symptoms and flares of her asthma when the season changes. Patient denies dizziness, syncope, fever, chills, nausea, vomiting, sore throat, abdominal pain, diaphoresis, headache, lightheadedness, or diarrhea. MD Complaint: shortness of breath, cough, "asthma attack" -: Sudden, days(s) (2) Severity: moderate Pain Scale: 5 Quality: dull, other (Chest tightness) Consistency: intermittent Improves With: nothing Worsens With: coughing, other (Exposed to cold air) Known History Of: asthma Context: allergen exposure, anxiety Associated Symptoms: denies other symptoms, cough - Related Data Home Oxygen Therapy: No Previous Rx's Medication Instructions Recorded Last Taken Type Albuterol Sulfate [Ventolin HFA] 2 puff IH Q4H PRN #1 hfa.aer.ad 04/11/13 12/23/12 Rx Azithromycin [Zithromax Z-NIKOS] 0 mg PO DAILY #1 pack 03/05/20 Unknown Rx Fluticasone/Salmeterol [Advair 1 puff IH BID #1 disk.w.dev 03/05/20 Unknown Rx Diskus 250-50 mcg] ALBUTEROL NEB's [Proventil 0.083% 3 ml IH Q6H PRN #50 neb 04/16/21 Unknown Rx NEBS] Albuterol Mdi (or & Nicu Only) 2 puff IH QID PRN #1 inh 04/16/21 Unknown Rx [ProAir HFA Inhaler] Benzonatate [Tessalon Perles] 100 mg PO Q8HR #30 capsule 04/16/21 Unknown Rx Cetirizine HCl [Zyrtec 10mg tab] 10 mg PO DAILY #30 tablet 04/16/21 Unknown Rx Prednisone [predniSONE 10 mg 10 mg PO .TAPER #21 tab.ds.pk 04/16/21 Unknown Rx (6-Day Pack, 21 Tabs)] Allergies Allergy/AdvReac Type Severity Reaction Status Date / Time No Known Allergies Allergy Verified 01/21/14 01:53 ED Review of Systems ROS: Stated complaint: ASTHMA Other details as noted in HPI Constitutional: denies: chills, fever Eyes: denies: eye pain, eye discharge, vision change ENT: denies: ear pain, throat pain Respiratory: cough, shortness of breath, wheezing Cardiovascular: denies: chest pain, palpitations Endocrine: no symptoms reported Gastrointestinal: denies: abdominal pain, nausea, diarrhea Genitourinary: denies: urgency, dysuria, discharge Musculoskeletal: denies: back pain, joint swelling, arthralgia Skin: denies: rash, lesions Neurological: denies: headache, weakness, paresthesias Psychiatric: denies: anxiety, depression Hematological/Lymphatic: denies: easy bleeding, easy bruising ED Past Medical Hx - Past Medical History Previous Medical History?: Yes Hx Asthma: Yes - Surgical History Past Surgical History?: No - Social History Smoking Status: Never Smoker - Medications Home Medications: Home Medications Medication Instructions Recorded Confirmed Last Taken Type Albuterol Sulfate [Ventolin HFA] 2 puff IH Q4H PRN #1 hfa.aer.ad 04/11/13 03/03/20 12/23/12 Rx Azithromycin [Zithromax Z-NIKOS] 0 mg PO DAILY #1 pack 03/05/20 Unknown Rx Fluticasone/Salmeterol [Advair 1 puff IH BID #1 disk.w.dev 03/05/20 Unknown Rx Diskus 250-50 mcg] ALBUTEROL NEB's [Proventil 0.083% 3 ml IH Q6H PRN #50 neb 04/16/21 Unknown Rx NEBS] Albuterol Mdi (or & Nicu Only) 2 puff IH QID PRN #1 inh 04/16/21 Unknown Rx [ProAir HFA Inhaler] Benzonatate [Tessalon Perles] 100 mg PO Q8HR #30 capsule 04/16/21 Unknown Rx Cetirizine HCl [Zyrtec 10mg tab] 10 mg PO DAILY #30 tablet 04/16/21 Unknown Rx Prednisone [predniSONE 10 mg 10 mg PO .TAPER #21 tab.ds.pk 04/16/21 Unknown Rx (6-Day Pack, 21 Tabs)] ED Physical Exam - General Limitations: No Limitations General appearance: alert, in no apparent distress - Head Head exam: Present: atraumatic, normocephalic, normal inspection - Eye Eye exam: Present: normal appearance, PERRL, EOMI Pupils: Present: normal accommodation - ENT ENT exam: Present: normal exam, normal orophraynx, mucous membranes moist, TM's normal bilaterally, normal external ear exam - Neck Neck exam: Present: normal inspection, full ROM - Respiratory Respiratory exam: Present: wheezes (Mildly diffuse coarse wheezes throughout). Absent: respiratory distress, rales, rhonchi, chest wall tenderness, accessory muscle use, decreased breath sounds, prolonged expiratory - Cardiovascular Cardiovascular Exam: Present: regular rate, normal rhythm, normal heart sounds. Absent: systolic murmur, diastolic murmur, rubs, gallop - GI/Abdominal GI/Abdominal exam: Present: soft, normal bowel sounds. Absent: tenderness, guarding, rebound, hyperactive bowel sounds, hypoactive bowel sounds, organomegaly, bruit - Extremities Exam Extremities exam: Present: normal inspection, full ROM, normal capillary refill - Back Exam Back exam: Present: normal inspection, full ROM. Absent: tenderness, CVA tenderness (R), CVA tenderness (L), muscle spasm, vertebral tenderness - Neurological Exam Neurological exam: Present: alert, oriented X3, CN II-XII intact, normal gait, reflexes normal - Psychiatric Psychiatric exam: Present: normal affect, normal mood - Skin Skin exam: Present: warm, dry, intact, normal color. Absent: rash ED Medical Decision Making - Medical Decision Making This is a nulliparous 20-year-old -[place] female with a history of asthma who presents to the ED with complaint of acute onset persistent nasal and sinus congestion, persistent shortness of breath, wheezing, persistent dry cough for the last 2 days. Patient states that she ran out of all her medications including albuterol inhaler. Patient states that she usually experiences similar symptoms and flares of her asthma when the season changes. In the ED, patient is alert and oriented x3 and is not in any distress and is hemodynamically stable with oxygen saturation of 97% in room air during triage. Patient was treated in the ED with DuoNeb and also given oral prednisone. On reevaluation, patient felt better and was discharged home on medications. Patient was advised to follow-up with her primary care physician in 3 to 5 days for reevaluation return to the ED immediately if symptoms get worse. - Differential Diagnosis Asthma; bronchitis; URI; allergic rhinitis; Critical care attestation.: If time is entered above; I have spent that time in minutes in the direct care of this critically ill patient, excluding procedure time. ED Disposition Clinical Impression: Acute bronchitis with asthma with acute exacerbation, Acute upper respiratory infection Disposition: HOME / SELF CARE / HOMELESS Is pt being admited?: No Does the pt Need Aspirin: No Condition: Stable Instructions: Upper Respiratory Infection, Adult, [id number], Cough, Adult, [id number], Acute Bronchitis, Adult, [id number], Asthma, Adult, [id number] Additional Instructions: Take medication with food, drink plenty of fluids and follow-up with your prim [place] care physician in 3 to 5 days for reevaluation. Return to the ED immediately if symptoms get worse. Prescriptions: Prednisone [predniSONE 10 mg (6-Day Pack, 21 Tabs)] 10 mg PO .TAPER #21 tab.ds.pk Albuterol Mdi (or & Nicu Only) [ProAir HFA Inhaler] 2 puff IH QID PRN #1 inh PRN Reason: Shortness Of Breath ALBUTEROL NEB's [Proventil 0.083% NEBS] 3 ml IH Q6H PRN #50 neb PRN Reason: Wheezing Benzonatate [Tessalon Perles] 100 mg PO Q8HR #30 capsule Cetirizine HCl [Zyrtec 10mg tab] 10 mg PO DAILY #30 tablet Referrals: [facility] [place] [Provider Group] - 7-10 days Time of Disposition: 02:50 Print Language: PERSIAN
[2021-04-16] MEDS ORDERED: methylPREDNISolone Sod Succinate 40 MG/1 ML INJ IM ONE (02:53)
== END 2021-04-16 03:44 | disposition home or self-care (01) ==
LOC: ED 00:01
DX: J45.901 Unspecified asthma with (acute) exacerbation (principal); J06.9 Acute upper respiratory infection, unspecified
CPT/HCPCS: 94640; 96372; 99282; J2920; J7512